=== PATIENT | female | born 1985 | race Asian ===

== ENCOUNTER 2017-06-26 02:00 | Inpatient (IN) | payer SELFPAY ==
[~2017-06-26] VITALS: Ht 154.9 cm; Wt 71.2 kg
[2017-06-26] MEDS ORDERED: LR 1,000 ML IV ONE (02:52)
[2017-06-26] MEDS ORDERED: LR 1,000 ML IV SCH ×3 (02:52→10:36)
[2017-06-26] MEDS ORDERED: LR 500 ML IV ONE (02:52)
[2017-06-26] MEDS ORDERED: OXYTOCIN/NORMAL SALINE 1,000 ML IV SCH (02:52)
[2017-06-26] MEDS ORDERED: NALBUPHINE HCL 10 MG/ML AMP IVP PRN (03:00)
[2017-06-26] MEDS ORDERED: AMPICILLIN SODIUM 2 GM in NS 100 ML IV ONE (03:00)
[2017-06-26] MEDS ORDERED: TERBUTALINE SULFATE 1 MG/ML VIAL SUBCUT ONE (03:00)
[2017-06-26] MEDS ORDERED: AMPICILLIN SODIUM 2 GM VIAL ONE (03:34)
[2017-06-26 03:59] LABS: BASOPHILS % (AUTO) 0.2 % (0.0-2.0); EOSINOPHILS # (AUTO) 0.1 K/uL (0.0-0.4); EOSINOPHILS % (AUTO) 0.8 % (0.0-4.0); HEMATOCRIT 38.5 % (36-48); HEMOGLOBIN 12.8 g/dL (12.0-16.0); LYMPHOCYTES # (AUTO) 1.5 K/uL (1.0-5.5); LYMPHOCYTES % (AUTO) 11.9 % (20.5-51.5); MEAN CORPUSCULAR HEMOGLOBIN 30 pg (27-31); MEAN CORPUSCULAR HGB CONC 33 % (32-36); MEAN CORPUSCULAR VOLUME 90 fL (79.0-98.0); MONOCYTES # (AUTO) 0.8 K/uL (0.0-1.0); MONOCYTES % (AUTO) 6.2 % (1.7-9.3); NEUTROPHILS # (AUTO) 10.6 K/uL (1.8-7.7); NEUTROPHILS % (AUTO) 80.9 % (40.0-70.0); PLATELET COUNT (AUTO) 192 K/uL (130-430); RED BLOOD CELL COUNT(AUTO) 4.28 MIL/uL (4.2-6.2); RED CELL DISTRIBUTION WIDTH 13.2 % (9.0-15.0)
[2017-06-26 04:00] VITALS: BP_SYST 98
[2017-06-26] MEDS ORDERED: FENT2mCg/mL-ROPIVA0.2%/NS EPID 150 ML EP ONE (05:51)
[2017-06-26] MEDS ORDERED: AMPICILLIN SODIUM 1 GM in NS 50 ML IV SCH (07:00)
[2017-06-26] MEDS ORDERED: OXYTOCIN/NORMAL SALINE 1,000 ML IV ONE (09:07)
[2017-06-26] MEDS ORDERED: ACETAMINOPHEN 325 MG TABLET PO PRN (09:15)
[2017-06-26] MEDS ORDERED: HYDROcodone/ACETAMIN 5-325 MG TAB (NORCO/ VICODIN) PO PRN ×2 (09:15)
[2017-06-26] MEDS ORDERED: ANUSOL 1 EA SUPP.RECT (PREPARATION H) RC PRN (09:15)
[2017-06-26] MEDS ORDERED: BISACODYL 10 MG/SUPPOSITORY RC PRN (09:15)
[2017-06-26] MEDS ORDERED: LANOLIN 7 GM OINT. TP PRN (09:15)
[2017-06-26] MEDS ORDERED: RHO(D) IMMUNE GLOBULIN/MALTOSE 1500 UNITS/1.3 ML (WINHRO) IM PRN (09:15)
[2017-06-26] MEDS ORDERED: TEMAZEPAM 15 MG CAPSULE PO PRN (09:15)
[2017-06-26] MEDS ORDERED: MEASLES,MUMPS&RUBELLA VACC/PF 12500 UNIT/0.5 ML VIAL SUBQ PRN (09:15)
[2017-06-26] MEDS ORDERED: CEFAZOLIN 2 GM IVPB PREMIX 50 ML IV ONE ×2 (09:30→09:33)
[2017-06-26] MEDS ORDERED: NALOXONE HCL 1 MG in NACL 0.9% 1,000 ML IV PRN ×4 (10:36)
[2017-06-26 10:40] VITALS: BP_SYST 121
[2017-06-26] MEDS ORDERED: MEPERIDINE HCL/PF 25 MG/ML DISP.SYRIN IVP PRN ×2 (10:45)
[2017-06-26] MEDS ORDERED: DIPHENHYDRAMINE HCL 50 MG CAPSULE PO PRN (10:45)
[2017-06-26] MEDS ORDERED: HYDROmorphone 1 MG INJ. 1 MG/ML AMPUL IVP PRN (10:45)
[2017-06-26] MEDS ORDERED: ONDANSETRON HCL 4 MG/2 ML VIAL IVP PRN (10:45)
[2017-06-26] MEDS ORDERED: HYDROmorphone 2 MG/ML VIAL IVP PRN ×2 (10:45)
[2017-06-26] MEDS ORDERED: DIPHENHYDRAMINE INJ 50 MG/ML VIAL IVP PRN (10:45)
[2017-06-26] MEDS ORDERED: NALOXONE HCL 0.4 MG/ML AMP (NARCAN) IVP PRN ×3 (10:45)
[2017-06-26] MEDS: IBUPROFEN 600 MG TABLET PO SCH ×2 (19:46→23:47)
[2017-06-26] MEDS: SIMETHICONE 80 MG TAB.CHEW PO PRN (23:47)
[2017-06-26] MEDS: SENNOSIDES/DOCUSATE SODIUM 1 TAB TABLET(SENOKOT-S) PO PRN (23:47)
[2017-06-26] MEDS: DOCUSATE SODIUM 100 MG CAPSULE PO PRN (23:47)
[2017-06-27] MEDS: SIMETHICONE 80 MG TAB.CHEW PO PRN (04:26)
[2017-06-27] MEDS: IBUPROFEN 600 MG TABLET PO SCH ×3 (04:26→18:35)
[2017-06-27] MEDS: DOCUSATE SODIUM 100 MG CAPSULE PO PRN (04:26)
[2017-06-27 06:58] LABS: BASOPHILS % (AUTO) 0.1 % (0.0-2.0); EOSINOPHILS # (AUTO) 0.1 K/uL (0.0-0.4); EOSINOPHILS % (AUTO) 0.5 % (0.0-4.0); HEMATOCRIT 33.8 % (36-48); HEMOGLOBIN 11.4 g/dL (12.0-16.0); LYMPHOCYTES # (AUTO) 1.4 K/uL (1.0-5.5); LYMPHOCYTES % (AUTO) 9.6 % (20.5-51.5); MEAN CORPUSCULAR HEMOGLOBIN 30 pg (27-31); MEAN CORPUSCULAR HGB CONC 34 % (32-36); MEAN CORPUSCULAR VOLUME 90 fL (79.0-98.0); MONOCYTES # (AUTO) 0.9 K/uL (0.0-1.0); MONOCYTES % (AUTO) 5.7 % (1.7-9.3); NEUTROPHILS # (AUTO) 12.6 K/uL (1.8-7.7); NEUTROPHILS % (AUTO) 84.1 % (40.0-70.0); PLATELET COUNT (AUTO) 151 K/uL (130-430); RED BLOOD CELL COUNT(AUTO) 3.76 MIL/uL (4.2-6.2); RED CELL DISTRIBUTION WIDTH 13.2 % (9.0-15.0)
[2017-06-27 12:08] LABS: HEPATITIS B CORE AB, TOTAL Negative (Negative); HEPATITIS B SURFACE AG Negative (Negative); HEPATITIS C VIRUS AB <0.1 s/co ratio (0.0-0.9)
[2017-06-28] MEDS: IBUPROFEN 600 MG TABLET PO SCH ×4 (05:22→23:51)
[2017-06-29] MEDS ORDERED: DIPH-TET-PERTUS Vaccine 0.5 ML VIAL/Tdap (ADACEL) I.M. PRN (01:45)
[2017-06-29] MEDS: DOCUSATE SODIUM 100 MG CAPSULE PO PRN ×2 (05:53→10:46)
[2017-06-29] MEDS: SENNOSIDES/DOCUSATE SODIUM 1 TAB TABLET(SENOKOT-S) PO PRN (05:53)
[2017-06-29] MEDS: IBUPROFEN 600 MG TABLET PO SCH ×2 (05:53→12:11)
[2017-06-29] MEDS: SIMETHICONE 80 MG TAB.CHEW PO PRN (12:13)
== END 2017-06-29 15:20 | disposition home or self-care (01) | DRG 766 ==
LOC: INTOOBSV 02:00 → SPU 02:00 → OBSVTOIN 02:37 → SPU 02:37
PROVIDERS: ADMIT Obstetrics & Gynecology; ATTEND Obstetrics & Gynecology
PROC: 3E0134Z Introduction of Serum, Toxoid and Vaccine into Subcutaneous Tissue, Percutaneous Approach (ICD-10-PCS; 2017-06-26)
PROC: 10D00Z1 Extraction of Products of Conception, Low, Open Approach (ICD-10-PCS; principal; 2017-06-26 09:45)
DX: O76 Abnormality in fetal heart rate and rhythm complicating labor and delivery (principal); O77.0 Labor and delivery complicated by meconium in amniotic fluid; Z37.0 Single live birth; Z3A.39 39 weeks gestation of pregnancy; Z23 Encounter for immunization
CPT/HCPCS: 36415; 81002-TC; 85025; 86704; 86706; 86803; 86886; 86900; 86901; 87340; 94760; A4618; C1751; G0378; J0290; J0690; J2590; J3010; J7120